=== PATIENT | female | born 1935 | race Caucasian/White ===

== ENCOUNTER 2019-06-25 00:47 | Inpatient (IN) ==
[2019-06-25 01:16] LABS: Basophils % 0.1 % (0.0-0.8); Eosinophils % 0.2 % (0.00-10.9); Hematocrit 39.3 VOL% (35.7-47.0); Hemoglobin 13.3 GM/DL (12.0-16.0); Immature Granulocytes % 0.4 %; Immature Granulocytes Absolute 0.06 #; Lymphocytes # 0.8 10*3/uL (1.4-4.0); Lymphocytes % 5.2 % (21.3-54.2); Mean Corpuscular HGB Conc 33.8 GM/DL (32-36); Mean Corpuscular Volume 95.4 FL (87-102); Mean Platelet Volume 9.6 FL (9.6-12.0); Neutrophils % 91.1 % (38.7-73.9); Platelet Count 410 T/CUMM (130-400); Red Blood Count 4.12 MC/CUMM (3.8-5.5); Red Cell Distribution Width 13.7 % (9.3-17.3); White Blood Count 15.4 T/CUMM (4-12)
[2019-06-25] MEDS ORDERED: ONDANSETRON 4 MG/2 ML VIAL IV ONE ×2 (01:18→02:08)
[2019-06-25] MEDS ORDERED: ALUM/MAG/SIMETH/LIDO VISC 1:1 30 ML BOTTLE PO STA (01:18)
[2019-06-25 01:32] LABS: Albumin 3.2 G/DL (3.4-5.0); Bilirubin,Total 2.1 MG/DL (0.2-1.0); Calcium 9.2 MG/DL (8.5-10.1); Osmolality,Calculated 271.1 MOS/KG (273-304); Total Protein 7.7 G/DL (6.4-8.3)
[2019-06-25 01:41] LABS: Band Neutrophils 1 % (0-10); Lymphocytes 6 % (20-55); Platelet Estimate Increased; Segmented Neutrophils 93 % (50-85); Total Cells Counted 100
[2019-06-25] MEDS ORDERED: MORPHINE 4 MG/1 ML VIAL IV STA (02:08)
[2019-06-25] MEDS ORDERED: PIPERACILLIN/TAZOBACTAM 3,375 MG in SODIUM CHLORIDE 0.9% 100 ML IV STA (03:04)
[2019-06-25] MEDS ORDERED: MORPHINE 4 MG/1 ML VIAL IV PRN (03:08)
[2019-06-25] MEDS ORDERED: ONDANSETRON 4 MG/2 ML VIAL IV PRN (03:08)
[2019-06-25] MEDS ORDERED: IBUPROFEN 800 MG TABLET ONE (03:18)
[2019-06-25] MEDS ORDERED: IBUPROFEN 800 MG TABLET PO STA (03:19)
[2019-06-25] MEDS: DEXTROSE 5% NACL 0.45% 1,000 ML IV SCH ×2 (04:20→13:07)
[2019-06-25 06:15] LABS: Basophils # 0.1 10*3/uL (0.0-0.2); Basophils % 0.2 % (0.0-0.8); Hematocrit 36.5 VOL% (35.7-47.0); Hemoglobin 12.3 GM/DL (12.0-16.0); Immature Granulocytes % 0.8 %; Immature Granulocytes Absolute 0.22 #; Lymphocytes % 3.5 % (21.3-54.2); Mean Corpuscular HGB Conc 33.7 GM/DL (32-36); Mean Corpuscular Volume 95.1 FL (87-102); Mean Platelet Volume 9.8 FL (9.6-12.0); Monocytes % 6.5 % (1.7-12.7); Platelet Count 384 T/CUMM (130-400); Red Blood Count 3.84 MC/CUMM (3.8-5.5); Red Cell Distribution Width 13.8 % (9.3-17.3); White Blood Count 27.1 T/CUMM (4-12)
[2019-06-25 06:35] LABS: Albumin 2.8 G/DL (3.4-5.0); Bilirubin,Total 2.8 MG/DL (0.2-1.0); Calcium 8.5 MG/DL (8.5-10.1); Total Protein 6.8 G/DL (6.4-8.3)
[2019-06-25 06:47] LABS: Band Neutrophils 2 % (0-10); Lymphocytes 4 % (20-55); Segmented Neutrophils 86 % (50-85); Total Cells Counted 100
[2019-06-25 06:48] LABS: Ovalocytes Slight; Platelet Estimate Adequate
[2019-06-25] MEDS: PANTOPRAZOLE 40 MG VIAL IV SCH (09:07)
[2019-06-25] MEDS: PIPERACILLIN/TAZOBACTAM 3,375 MG in SODIUM CHLORIDE 0.9% 100 ML IV SCH ×2 (13:15→21:08)
[2019-06-25 18:14] LABS: Apearance,Urine CLEAR (Clear); Bilirubin,Urine Negative (Negative); Blood, Urine Negative (Negative); Glucose,Urine (UA) Negative (Negative); Ketones,Urine Negative (Negative); Nitrite,Urine Negative (Negative); Protein,Urine 30 MG/DL; RBC,Urine 6 /HPF (0-4); Squamous Epithelial Cell,Urine Occasional /HPF (0-10); Urine Color Dark Yellow (Yellow); Urine Specific Gravity 1.046 (1.001-1.035); WBC,Urine 1 /HPF (0-6)
[2019-06-26 04:41] LABS: Basophils % 0.2 % (0.0-0.8); Eosinophils # 0.2 10*3/uL (0.0-0.87); Eosinophils % 1.3 % (0.00-10.9); Hematocrit 33.4 VOL% (35.7-47.0); Hemoglobin 11.2 GM/DL (12.0-16.0); Immature Granulocytes % 0.4 %; Immature Granulocytes Absolute 0.07 #; Lymphocytes # 2.8 10*3/uL (1.4-4.0); Lymphocytes % 16.3 % (21.3-54.2); Mean Corpuscular HGB Conc 33.5 GM/DL (32-36); Mean Corpuscular Volume 94.9 FL (87-102); Mean Platelet Volume 9.8 FL (9.6-12.0); Monocytes % 8.1 % (1.7-12.7); Neutrophils % 73.7 % (38.7-73.9); Platelet Count 345 T/CUMM (130-400); Red Blood Count 3.52 MC/CUMM (3.8-5.5); Red Cell Distribution Width 14.2 % (9.3-17.3); White Blood Count 16.8 T/CUMM (4-12)
[2019-06-26] MEDS: PIPERACILLIN/TAZOBACTAM 3,375 MG in SODIUM CHLORIDE 0.9% 100 ML IV SCH ×3 (04:47→21:47)
[2019-06-26] MEDS: DEXTROSE 5% NACL 0.45% 1,000 ML IV SCH ×3 (07:42→17:27)
[2019-06-26] MEDS ORDERED: INDOMETHACIN SUPP 50 MG SUPP RECTAL ONE ×2 (08:00→12:05)
[2019-06-26] MEDS ORDERED: propofoL 200 MG/20 ML VIAL IV ONE (09:00)
[2019-06-26] MEDS ORDERED: LIDOCAINE 2% 5 ML VIAL ONE (09:00)
[2019-06-26] MEDS ORDERED: ONDANSETRON 4 MG/2 ML VIAL ONE (09:00)
[2019-06-26] MEDS ORDERED: GLYCOPYRROLATE 0.4 MG/2 ML VIAL ONE (09:00)
[2019-06-26] MEDS ORDERED: DEXAMETHASONE 4 MG/1 ML VIAL ONE (09:00)
[2019-06-26] MEDS ORDERED: ROCURONIUM 100 MG/10 ML VIAL IV ONE (09:00)
[2019-06-26] MEDS: PANTOPRAZOLE 40 MG VIAL IV SCH (09:55)
[2019-06-26] MEDS: LACTATED RINGERS 1,000 ML IV SCH (12:03)
[2019-06-26] MEDS ORDERED: NEOSTIGMINE 10 MG/10 ML VIAL ONE (13:02)
[2019-06-26] MEDS ORDERED: SEVOFLURANE 1 UNIT/15 MINUTE INH ONE (13:02)
[2019-06-26] MEDS: carvediloL 12.5 MG TABLET PO SCH (21:46)
[2019-06-27] MEDS: ACETAMINOPHEN 325 MG TABLET PO PRN (00:01)
[2019-06-27] MEDS: DEXTROSE 5% NACL 0.45% 1,000 ML IV SCH ×4 (04:36→16:20)
[2019-06-27] MEDS: PIPERACILLIN/TAZOBACTAM 3,375 MG in SODIUM CHLORIDE 0.9% 100 ML IV SCH ×2 (04:36→16:58)
[2019-06-27 05:31] LABS: Basophils % 0.1 % (0.0-0.8); Hematocrit 33.1 VOL% (35.7-47.0); Hemoglobin 11.2 GM/DL (12.0-16.0); Immature Granulocytes % 0.3 %; Immature Granulocytes Absolute 0.03 #; Lymphocytes # 1.2 10*3/uL (1.4-4.0); Lymphocytes % 11.6 % (21.3-54.2); Mean Corpuscular HGB Conc 33.8 GM/DL (32-36); Mean Platelet Volume 10.6 FL (9.6-12.0); Platelet Count 373 T/CUMM (130-400); Red Blood Count 3.52 MC/CUMM (3.8-5.5); Red Cell Distribution Width 14.1 % (9.3-17.3); White Blood Count 10.2 T/CUMM (4-12)
[2019-06-27 05:53] LABS: Albumin 2.4 G/DL (3.4-5.0); Bilirubin,Total 1.4 MG/DL (0.2-1.0); Calcium 8.3 MG/DL (8.5-10.1); Total Protein 6.6 G/DL (6.4-8.3)
[2019-06-27] MEDS ORDERED: ceFAZolin 1,000 MG in SYRINGE 1 EACH IV ONE (06:00)
[2019-06-27] MEDS: PANTOPRAZOLE 40 MG VIAL IV SCH ×2 (07:39→09:04)
[2019-06-27] MEDS: POTASSIUM CHLORIDE RIDER 10 MEQ in PREMIX 1 EACH IV SCH ×4 (07:45→16:46)
[2019-06-27] MEDS: DILTIAZEM CD 240 MG CAPSULE PO SCH (09:03)
[2019-06-27] MEDS: carvediloL 12.5 MG TABLET PO SCH ×2 (09:03→20:43)
[2019-06-27] MEDS: LISINOPRIL/HCTZ 20-12.5 MG TABLET PO SCH (09:03)
[2019-06-27] MEDS: LACTATED RINGERS 1,000 ML IV SCH (09:04)
[2019-06-27] MEDS: POTASSIUM CHLORIDE 8 MEQ CAPSULE PO SCH ×2 (09:36→18:02)
[2019-06-27] MEDS ORDERED: MORPHINE 4 MG/1 ML VIAL IV PRN ×2 (09:52)
[2019-06-27] MEDS ORDERED: KETOROLAC 15 MG/1 ML VIAL IV PRN (09:54)
[2019-06-27] MEDS ORDERED: ePHEDrine 50 MG/ML AMP ONE (14:53)
[2019-06-27] MEDS ORDERED: hydrALAZINE 20 MG/1 ML VIAL ONE (14:59)
[2019-06-27] MEDS ORDERED: LIDOCAINE 2% 5 ML VIAL ONE (14:59)
[2019-06-27] MEDS ORDERED: LABETALOL 20 MG/4 ML SYRINGE IV ONE (14:59)
[2019-06-27] MEDS ORDERED: propofoL 200 MG/20 ML VIAL IV ONE (14:59)
[2019-06-27] MEDS ORDERED: fentaNYL 100 MCG/2 ML VIAL ONE (14:59)
[2019-06-27] MEDS ORDERED: GLYCOPYRROLATE 0.4 MG/2 ML VIAL ONE ×2 (15:00)
[2019-06-27] MEDS ORDERED: SUCCINYLCHOLINE 200 MG/10 ML VIAL ONE (15:00)
[2019-06-27] MEDS ORDERED: SEVOFLURANE 1 UNIT/15 MINUTE INH ONE (15:00)
[2019-06-27] MEDS ORDERED: ROCURONIUM 100 MG/10 ML VIAL IV ONE (15:00)
[2019-06-27] MEDS ORDERED: NEOSTIGMINE 10 MG/10 ML VIAL ONE (15:01)
[2019-06-27] MEDS ORDERED: ONDANSETRON 4 MG/2 ML VIAL ONE ×2 (15:01→15:04)
[2019-06-27] MEDS ORDERED: HYDROmorphone 2 MG/1 ML VIAL ONE (15:04)
[2019-06-27] MEDS ORDERED: HYDROmorphone 2 MG/1 ML VIAL IV PRN (15:11)
[2019-06-27] MEDS ORDERED: ONDANSETRON 4 MG/2 ML VIAL IV PRN (15:11)
[2019-06-27] MEDS: POTASSIUM CHLORIDE RIDER 10 MEQ in PREMIX 1 EACH IV PRN ×3 (16:59→22:44)
[2019-06-28] MEDS: PIPERACILLIN/TAZOBACTAM 3,375 MG in SODIUM CHLORIDE 0.9% 100 ML IV SCH ×2 (00:49→08:23)
[2019-06-28] MEDS: POTASSIUM CHLORIDE RIDER 10 MEQ in PREMIX 1 EACH IV PRN ×2 (00:49→02:50)
[2019-06-28] MEDS: DEXTROSE 5% NACL 0.45% 1,000 ML IV SCH (04:45)
[2019-06-28 05:22] LABS: Basophils % 0.1 % (0.0-0.8); Eosinophils # 0.1 10*3/uL (0.0-0.87); Eosinophils % 0.4 % (0.00-10.9); Hematocrit 34.1 VOL% (35.7-47.0); Hemoglobin 11.4 GM/DL (12.0-16.0); Immature Granulocytes % 0.6 %; Immature Granulocytes Absolute 0.08 #; Lymphocytes # 2.6 10*3/uL (1.4-4.0); Mean Corpuscular HGB Conc 33.4 GM/DL (32-36); Mean Corpuscular Volume 95.5 FL (87-102); Mean Platelet Volume 9.9 FL (9.6-12.0); Monocytes % 7.2 % (1.7-12.7); Neutrophils % 72.7 % (38.7-73.9); Platelet Count 395 T/CUMM (130-400); Red Blood Count 3.57 MC/CUMM (3.8-5.5); Red Cell Distribution Width 14.2 % (9.3-17.3); White Blood Count 13.8 T/CUMM (4-12)
[2019-06-28 05:50] LABS: Calcium 8.2 MG/DL (8.5-10.1); Osmolality,Calculated 273.7 MOS/KG (273-304)
[2019-06-28] MEDS: ACETAMINOPHEN 325 MG TABLET PO PRN (07:29)
[2019-06-28] MEDS: POTASSIUM CHLORIDE 8 MEQ CAPSULE PO SCH (08:23)
[2019-06-28] MEDS: PANTOPRAZOLE 40 MG VIAL IV SCH (08:23)
[2019-06-28] MEDS: DILTIAZEM CD 240 MG CAPSULE PO SCH (08:32)
[2019-06-28] MEDS: carvediloL 12.5 MG TABLET PO SCH (08:32)
[2019-06-28] MEDS: LISINOPRIL/HCTZ 20-12.5 MG TABLET PO SCH (08:32)
[2019-06-28 10:56] VITALS: BP 110/59
== END 2019-06-28 12:49 | disposition home or self-care (01) | DRG 418 ==
LOC: N.ED 00:47 → N.EDINP 03:07 → INTOOBSV 03:07 → N.3E 03:36
PROVIDERS: ADMIT Student in an Organized Health Care Education/Training Program; ATTEND Student in an Organized Health Care Education/Training Program
PROC: ERCPWSP (ICD-10-PCS; 2019-06-26 11:20)
PROC: LAPCHOL (2019-06-27 12:55)

== ENCOUNTER 2020-09-17 09:07 | Observation (INO) ==
[2020-09-17 09:53] LABS: Basophils % 0.2 % (0.0-0.8); Eosinophils % 0.1 % (0.00-10.9); Hematocrit 43.8 VOL% (35.7-47.0); Immature Granulocytes % 0.4 %; Immature Granulocytes Absolute 0.07 #; Lymphocytes # 2.4 10*3/uL (1.4-4.0); Lymphocytes % 14.7 % (21.3-54.2); Mean Corpuscular HGB Conc 34.2 GM/DL (32-36); Mean Platelet Volume 9.4 FL (9.6-12.0); Monocytes % 7.7 % (1.7-12.7); Neutrophils % 76.9 % (38.7-73.9); Platelet Count 401 T/CUMM (130-400); Red Blood Count 4.71 MC/CUMM (3.8-5.5); Red Cell Distribution Width 13.3 % (9.3-17.3); White Blood Count 16.6 T/CUMM (4-12)
[2020-09-17] MEDS ORDERED: LEVOFLOXACIN INJ 750 MG in PREMIX 1 EACH IV STA (10:08)
[2020-09-17] MEDS ORDERED: metroNIDAZOLE INJ 500 MG in PREMIX 1 EACH IV STA (10:08)
[2020-09-17 10:15] LABS: Albumin 3.2 G/DL (3.4-5.0); Bilirubin,Total 0.5 MG/DL (0.2-1.0); Calcium 9.3 MG/DL (8.5-10.1); Potassium 3.6 MMOL/L (3.5-5.1); Total Protein 7.9 G/DL (6.4-8.2)
[2020-09-17] MEDS ORDERED: ONDANSETRON 4 MG/2 ML VIAL IV PRN (12:20)
[2020-09-17] MEDS ORDERED: ACETAMINOPHEN 325 MG TABLET PO PRN (12:20)
[2020-09-17] MEDS: PIPERACILLIN/TAZOBACTAM 3,375 MG in SODIUM CHLORIDE 0.9% 100 ML IV SCH (14:45)
[2020-09-17 16:02] LABS: Hematocrit 41.8 VOL% (35.7-47.0); Hemoglobin 14.3 GM/DL (12.0-16.0)
[2020-09-17 20:29] LABS: Hematocrit 38.9 VOL% (35.7-47.0); Hemoglobin 13.3 GM/DL (12.0-16.0)
[2020-09-17] MEDS ORDERED: MULTIVITAMIN (CENTRUM) TABLET PO SCH (21:00)
[2020-09-17] MEDS: carvediloL 12.5 MG TABLET PO SCH (21:00)
[2020-09-17] MEDS: cycloSPORINE OPH EMUL 1 VIAL BOTH EYES SCH (21:00)
[2020-09-17] MEDS ORDERED: ASPIRIN EC 81 MG TABLET PO SCH (21:00)
[2020-09-17] MEDS ORDERED: OMEGA 3 ACID ETHYL ESTERS 1 GM CAPSULE PO SCH (21:00)
[2020-09-18] MEDS: PIPERACILLIN/TAZOBACTAM 3,375 MG in SODIUM CHLORIDE 0.9% 100 ML IV SCH ×2 (01:22→08:39)
[2020-09-18 05:39] LABS: Hematocrit 36.5 VOL% (35.7-47.0); Hemoglobin 12.5 GM/DL (12.0-16.0)
[2020-09-18 05:53] LABS: Basophils # 0.1 10*3/uL (0.0-0.2); Basophils % 0.3 % (0.0-0.8); Eosinophils # 0.1 10*3/uL (0.0-0.87); Eosinophils % 0.5 % (0.00-10.9); Hematocrit 36.8 VOL% (35.7-47.0); Hemoglobin 12.6 GM/DL (12.0-16.0); Immature Granulocytes % 0.4 %; Immature Granulocytes Absolute 0.07 #; Lymphocytes # 3.7 10*3/uL (1.4-4.0); Mean Corpuscular HGB Conc 34.2 GM/DL (32-36); Mean Corpuscular Volume 93.2 FL (87-102); Mean Platelet Volume 9.9 FL (9.6-12.0); Monocytes % 8.6 % (1.7-12.7); Neutrophils % 68.2 % (38.7-73.9); Platelet Count 346 T/CUMM (130-400); Red Blood Count 3.95 MC/CUMM (3.8-5.5); Red Cell Distribution Width 13.5 % (9.3-17.3); White Blood Count 16.6 T/CUMM (4-12)
[2020-09-18 06:25] LABS: Calcium 8.8 MG/DL (8.5-10.1); Osmolality,Calculated 279.4 MOS/KG (273-304); Potassium 2.8 MMOL/L (3.5-5.1)
[2020-09-18] MEDS ORDERED: POTASSIUM CHLORIDE 20 MEQ TABLET PO PRN (06:34)
[2020-09-18] MEDS: POTASSIUM CHLORIDE 20 MEQ TABLET PO PRN ×4 (07:02→13:03)
[2020-09-18] MEDS: carvediloL 12.5 MG TABLET PO SCH (08:32)
[2020-09-18] MEDS: cycloSPORINE OPH EMUL 1 VIAL BOTH EYES SCH (08:39)
[2020-09-18] MEDS ORDERED: PANTOPRAZOLE 40 MG TABLET PO SCH (09:00)
[2020-09-18] MEDS ORDERED: THYROID 60 MG TABLET PO SCH (09:00)
[2020-09-18] MEDS ORDERED: DILTIAZEM CD 240 MG CAPSULE PO SCH (09:00)
[2020-09-18] MEDS ORDERED: POTASSIUM CHLORIDE 8 MEQ CAPSULE PO SCH (09:00)
[2020-09-18] MEDS ORDERED: LISINOPRIL/HCTZ 20-12.5 MG TABLET PO SCH (09:00)
[2020-09-18] MEDS ORDERED: CHOLECALCIFEROL 1,000 UNIT TABLET PO SCH (09:00)
[2020-09-18] MEDS ORDERED: ESTROGENS (CONJ) 0.625 MG TABLET PO SCH (09:00)
[2020-09-18] MEDS ORDERED: POTASSIUM CHLORIDE 20 MEQ/15 ML UDCUP PO ONE (09:01)
[2020-09-18] MEDS ORDERED: SIMETHICONE CHEW 80 MG TABLET PO PRN (10:09)
[2020-09-18 12:30] LABS: Hematocrit 37.1 VOL% (35.7-47.0); Hemoglobin 12.5 GM/DL (12.0-16.0)
[2020-09-18 15:44] VITALS: BP 98/57
== END 2020-09-18 16:20 | disposition home or self-care (01) ==
LOC: N.ED 09:07 → N.EDINP 12:20 → INTOOBSV 12:20 → SUATTDRO 12:20 → N.EDINP 15:02 → N.4E 15:24
PROVIDERS: ADMIT Internal Medicine; ATTEND Internal Medicine